=== PATIENT | male | born 1950 | race Caucasian/White ===

== ENCOUNTER 2019-12-27 08:15 | Outpatient (CLI) | payer MEDICARE, SELFPAY ==
--- NOTE | ~2019-12-27 | CT_ITS ---
EXAMINATION:CT lung screening DATE: 12/27/2019 09:25 INDICATION: Personal history of nicotine dependence. Smoker who quit 10 years ago with 30 pack year h istory. TECHNIQUE: Computed tomography (CT) of the chest was performed without intravenous contrast. Automate d exposure control and iterative reconstruction technique were employed. The dose-length product (DLP ) was 140.58 mGy-cm. COMPARISON: Chest CT 11/23/2018 FINDINGS: There is mild emphysema. No pleural effusion. The heart size is normal. There are coronary artery calcifications. No pericardial effusion. Calcifications in the spleen are consistent with old granulomatous disease. There is a 13 mm cyst in the liver. There is bilateral gynecomastia. There is severe cervical spondylosis and mild thoracic spondylosis. There are hemangiomas in T9, T10, and T11 vertebral bodies. IMPRESSION: 1. Lung-RADS category 1: Negative. Continue annual screening with noncontrast low-dose chest CT in 12 months. Reviewed, dictated and finalized at location B. IMPRESSION: 1. Lung-RADS category 1: Negative. Continue annual screening with noncontrast l ow-dose chest CT in 12 months.
== END 2019-12-27 08:16 | disposition home or self-care (01) ==
PROVIDERS: PCP Family Medicine; Visit Provider Family Medicine
DX: Z12.2 Encounter for screening for malignant neoplasm of respiratory organs (principal); Z87.891 Personal history of nicotine dependence
CPT/HCPCS: G0297

== ENCOUNTER 2020-01-16 00:37 | Outpatient (CLI) | payer MEDICARE, SELFPAY ==
[2020-01-16 17:26] LABS: SARS-CoV-2 RNA PCR Negative
== END 2020-01-16 00:38 | disposition home or self-care (01) ==
LOC: ANHCOVIDDT 00:37
PROVIDERS: PCP Family Medicine; Visit Provider Internal Medicine Gastroenterology
DX: Z01.812 Encounter for preprocedural laboratory examination (principal); Z20.828 Contact with and (suspected) exposure to other viral communicable diseases
CPT/HCPCS: 87635; C9803; U0003

== ENCOUNTER 2020-01-18 00:36 | Day surgery (SDC) | payer MEDICARE, SELFPAY ==
[2020-01-10 11:36] VITALS: BMI 27.8
--- NOTE | 2020-01-17 13:10 | WPDANESEPPF ---
Anes - Initial Pre Proc Eval Procedure: Operation Date: 01/18/20 08:00 Proposed Procedures p Screening Colonoscopy - Salo Guerrero MD Date/Time: 01/17/20 13:10 Surgeon: Salo Guerrero MD Pre Op Diagnosis: Fam Hx Colon Ca Patient Data Age: 69 Gender: M Height: 1.83 m Weight: 93 kg Allergies Allergy/AdvReac Type Severity Reaction Status Date / Time Sulfa (Sulfonamide Allergy Unknown Skin Verified 01/18/20 07:05 Antibiotics) Reaction sulfamethizole Allergy Unknown Skin Verified 01/18/20 07:05 Reaction Home Medications Medication Instructions Recorded Confirmed Type apremilast 30 mg tablet 30 mg PO BID 03/28/19 01/10/20 History clobetasol 0.05 % shampoo 1 applic TOPICAL DAILY 03/28/19 01/10/20 History clobetasol 0.05 % topical foam 1 applic TOPICAL BID 03/28/19 01/10/20 History tacrolimus 0.1 % topical ointment 1 applic TOPICAL BID 03/28/19 01/10/20 History ingenol mebutate 0.015 % topical 1 applic TOPICAL DAILY 12/14/19 01/10/20 History gel Patient hx anesthesia problems: none Family hx anesthesia problems: none PMFSH Past Medical History Medical History (Updated 01/17/20 @ 13:10 by Herman Ramirez DO) Atrial fibrillation Hepatitis C antibody test negative (~12/15/16) Mixed hyperlipidemia Normal colonoscopy (~01/10/10) Type 2 diabetes mellitus without complication, without long-term current use of insulin Unspecified hearing loss Surgical History Surgical History H/O colonoscopy (~10/2014) History of appendectomy (~1974) Social History Social History Smoking packs per day: 1 Smoking cigarettes per day: 20.0 Years smoked: 30 Smoking pack-years: 30.00 Smoking status: Former smoker Tobacco type: cigarettes Smoking end date: 05/03/06 Alcohol intake: current Drinks per week: 12 Alcohol use details: BEERS Substance use: never Substance use type: does not use Spiritual care concerns: No Anes - Eval Final PreProcedure Day of Procedure 01/17/20 13:10 Patient weight: overweight Heart: regular rate and rhythm Lungs: clear to auscultation and normal air movement Airway: Mallampati scale class II Neurological: alert and oriented Last oral intake: >/= 8 hours ASA classification: III Emergent: no Anesthetic plan: proceed Anesthesia type and monitoring: general GIVS and standard monitoring Informed Consent: The patient's anesthetic plan and its attendant risks and benefits were discussed with the patient/family/POA. Questions were solicited and answers provided to the satisfaction of the patient/family/POA.
[2020-01-18 07:05] VITALS: BP 143/87; PULSE 77; RESP 16; TEMP 36.6; O2SAT 99; BMI 28.8
[2020-01-18 07:05] LABS: Glucose Point of Care 120 (65-105)
[2020-01-18] MEDS: LACTATED RINGERS 1,000 ML 150 ML IV CONT (07:10)
--- NOTE | 2020-01-18 07:30 | WPDGICN ---
Assessment and Plan Assessment and plan (1) Family history of colon cancer in mother: Code(s): Z80.0 - Family history of malignant neoplasm of digestive organs Status: Acute Assessment and Plan: Patient's mother has had colon cancer plan is for patient to have surveillance colonoscopy now and at 5 year intervals if at all possible. (2) Family history of colonic polyps: Code(s): Z83.71 - Family history of colonic polyps Status: Acute Assessment and Plan: To patient's sisters have had colon polyps. Agree with surveillance as described above. GI Consult Note Consult date/time: 01/18/20 07:30 HPI: David Walden is a 69 year old male Seen in evaluation at the request of Dr. Heidi Taylor. patient presents for screening colonoscopy. Patient states that his current weight appetite bowel movements are normal. He denies abdominal pain. He states his bowel habits are regular. He denies any bleeding his weight has remained stable. Review of Systems Review of Systems: All systems reviewed & are unremarkable except as noted in HPI and below PMFSH Past Medical History Medical History Atrial fibrillation Hepatitis C antibody test negative (~12/15/16) Mixed hyperlipidemia Normal colonoscopy (~01/10/10) Type 2 diabetes mellitus without complication, without long-term current use of insulin Unspecified hearing loss Surgical History Surgical History H/O colonoscopy (~10/2014) History of appendectomy (~1974) Family History Family History Grandparent Family history of cardiovascular disease Diabetes mellitus Acute myocardial infarction Family history of coronary artery disease Mother Depression Carcinoma of colon Sibling Carcinoma of colon Father Family history of lung cancer Social History Social History Smoking packs per day: 1 Smoking cigarettes per day: 20.0 Years smoked: 30 Smoking pack-years: 30.00 Smoking status: Former smoker Tobacco type: cigarettes Smoking end date: 05/03/06 Alcohol intake: current Drinks per week: 12 Alcohol use details: BEERS Substance use: never Substance use type: does not use Spiritual care concerns: No Meds Home Medications and Allergies Home Medications Medication Instructions Recorded Confirmed Type apremilast 30 mg tablet 30 mg PO BID 03/28/19 01/10/20 History clobetasol 0.05 % shampoo 1 applic TOPICAL DAILY 03/28/19 01/10/20 History clobetasol 0.05 % topical foam 1 applic TOPICAL BID 03/28/19 01/10/20 History tacrolimus 0.1 % topical ointment 1 applic TOPICAL BID 03/28/19 01/10/20 History ingenol mebutate 0.015 % topical 1 applic TOPICAL DAILY 12/14/19 01/10/20 History gel Allergies Allergy/AdvReac Type Severity Reaction Status Date / Time Sulfa (Sulfonamide Allergy Unknown Skin Verified 01/18/20 07:05 Antibiotics) Reaction sulfamethizole Allergy Unknown Skin Verified 01/18/20 07:05 Reaction Vital Signs Vital Signs - 24 hr 01/18/20 07:05 Temperature 97.9 F Pulse Rate 77 Respiratory Rate 16 Blood Pressure 143/87 H Pulse Oximetry 99 Exam Narrative: Exam Narrative: Physical exam reveals patient to be alert. Vital signs stable. HEENT exam unremarkable. Lungs are clear to auscultation and percussion. Heart is without murmur or extra sounds. Abdominal exam bowel sounds are present soft nontender with no organomegaly. Digital external rectal exam is normal.
[2020-01-18 08:40] VITALS: BP 150/90; PULSE 72; RESP 31; O2SAT 92
--- NOTE | 2020-01-18 08:45 | WPDGICN ---
GI Consult Note Consult date/time: 01/18/20 08:45 HPI: David Walden is a 69 year old male Seen in evaluation at the request of Dr. Canales. Patient has a history of colon polyps on multiple previous visits. Most recent colonoscopy in 2016 revealed several tubular adenomas. Patient's current weight appetite bowel movements are normal. Patient denies abdominal pain he has had no bleeding. His weight appetite bowel movements are currently normal. Family history is noncontributory. There is no family history of colon or rectal disease. Past medical history is significant for atrial fibrillation for which patient chronically is on Eliquis and Pacerone. Eliquis will be held prior to colonoscopy. Review of Systems Review of Systems: All systems reviewed & are unremarkable except as noted in HPI and below PMFSH Past Medical History Medical History Atrial fibrillation Hepatitis C antibody test negative (~12/15/16) Mixed hyperlipidemia Normal colonoscopy (~01/10/10) Type 2 diabetes mellitus without complication, without long-term current use of insulin Unspecified hearing loss Surgical History Surgical History H/O colonoscopy (~10/2014) History of appendectomy (~1974) Family History Family History Grandparent Family history of cardiovascular disease Diabetes mellitus Acute myocardial infarction Family history of coronary artery disease Mother Depression Carcinoma of colon Sibling Carcinoma of colon Father Family history of lung cancer Social History Social History Smoking packs per day: 1 Smoking cigarettes per day: 20.0 Years smoked: 30 Smoking pack-years: 30.00 Smoking status: Former smoker Tobacco type: cigarettes Smoking end date: 05/03/06 Alcohol intake: current Drinks per week: 12 Alcohol use details: BEERS Substance use: never Substance use type: does not use Spiritual care concerns: No Meds Home Medications and Allergies Home Medications Medication Instructions Recorded Confirmed Type apremilast 30 mg tablet 30 mg PO BID 03/28/19 01/10/20 History clobetasol 0.05 % shampoo 1 applic TOPICAL DAILY 03/28/19 01/10/20 History clobetasol 0.05 % topical foam 1 applic TOPICAL BID 03/28/19 01/10/20 History tacrolimus 0.1 % topical ointment 1 applic TOPICAL BID 03/28/19 01/10/20 History ingenol mebutate 0.015 % topical 1 applic TOPICAL DAILY 12/14/19 01/10/20 History gel Allergies Allergy/AdvReac Type Severity Reaction Status Date / Time Sulfa (Sulfonamide Allergy Unknown Skin Verified 01/18/20 07:05 Antibiotics) Reaction sulfamethizole Allergy Unknown Skin Verified 01/18/20 07:05 Reaction Vital Signs Vital Signs - 24 hr 01/18/20 07:05 Temperature 97.9 F Pulse Rate 77 Respiratory Rate 16 Blood Pressure 143/87 H Pulse Oximetry 99 Exam Narrative: Exam Narrative: Physical exam reveals patient to be alert. Vital signs stable. HEENT exam unremarkable. Lungs are clear to auscultation and percussion. Heart is without murmur or extra sounds. Abdominal exam bowel sounds are present soft nontender with no organomegaly. Digital external rectal exam is normal.
[2020-01-18 08:50] VITALS: BP 99/67; PULSE 66; RESP 17; O2SAT 95
[2020-01-18 09:00] VITALS: BP 116/73; PULSE 74; RESP 17; O2SAT 97
== END 2020-01-18 09:30 | disposition home or self-care (01) ==
PROVIDERS: PCP Family Medicine; Visit Provider Internal Medicine Gastroenterology
PROC: 0DJD8ZZ Inspection of Lower Intestinal Tract, Via Natural or Artificial Opening Endoscopic (ICD-10-PCS; CPT 45378; principal; 2020-01-18 08:00)
DX: Z12.11 Encounter for screening for malignant neoplasm of colon (principal); K51.90 Ulcerative colitis, unspecified, without complications; D12.5 Benign neoplasm of sigmoid colon; K63.5 Polyp of colon; K57.30 Diverticulosis of large intestine without perforation or abscess without bleeding; K64.8 Other hemorrhoids; Z83.71 Family history of colonic polyps; Z80.0 Family history of malignant neoplasm of digestive organs; I48.91 Unspecified atrial fibrillation; E78.2 Mixed hyperlipidemia; E11.9 Type 2 diabetes mellitus without complications; Z87.891 Personal history of nicotine dependence
CPT/HCPCS: 45380; 45385; 88305; J2704; J7120

== ENCOUNTER 2020-12-31 08:39 | Outpatient (CLI) | payer MEDICARE, SELFPAY ==
--- NOTE | ~2020-12-31 | CT_ITS ---
EXAMINATION: CT lung screening DATE: 12/31/2020 08:57 INDICATION: Z87.891 - Personal history of nicotine dependence TECHNIQUE: Computed tomography (CT) of the chest was performed without intravenous contrast. Addition al 3D reconstructions utilizing coronal maximum intensity projection (MIP) were performed. Automated exposure control and iterative reconstruction technique were employed. The dose-length product was 13 3.90 mGy-cm. COMPARISON: 12/27/2019 FINDINGS: Minimal emphysema. No interval change in a few likely intrafissural lymph nodes, the largest on the l eft major fissure measuring 6 x 2 mm and the remainder all <3 mm in maximal dimension. No other pulmo nary nodules, pneumonia, pulmonary edema or pleural effusion. Heart size is normal. Atherosclerotic c oronary artery calcification. No pericardial effusion. Thoracic aorta is normal in caliber. No pathol ogically enlarged thoracic lymphadenopathy. 12 mm hepatic cyst. Multiple splenic calcifications consi stent with old granulomatous disease. Mild bilateral gynecomastia. Hemangiomas at T9-T11. IMPRESSION: 1. Lung-RADS category 2: Benign appearance or behavior. Continue annual screening with noncontrast lo w-dose chest CT in 12 months. Reviewed, dictated and finalized at location A. IMPRESSION: 1. Lung-RADS category 2: Benign appearance or behavior. Continue annual screeni ng with noncontrast low-dose chest CT in 12 months.
== END 2020-12-31 08:40 | disposition home or self-care (01) ==
PROVIDERS: PCP Family Medicine; Visit Provider Family Medicine
DX: Z12.2 Encounter for screening for malignant neoplasm of respiratory organs (principal); Z87.891 Personal history of nicotine dependence
CPT/HCPCS: 71271

== ENCOUNTER → 2021-07-01 02:16 | Outpatient (CLI) | payer MEDICARE, SELFPAY ==
[2021-07-01 11:51] LABS: SARS-CoV-2 RNA PCR Negative
== END ==
PROVIDERS: PCP Family Medicine; Visit Provider Family Medicine
DX: R68.89 Other general symptoms and signs (principal); Z20.822 Contact with and (suspected) exposure to COVID-19
CPT/HCPCS: C9803; U0003; U0005

== ENCOUNTER 2022-01-13 11:05 | Outpatient (CLI) | payer MEDICARE, SELFPAY ==
--- NOTE | ~2022-01-13 | CT_ITS ---
EXAMINATION: CT lung screening DATE: 01/13/2022 11:25 INDICATION: former tobacco user TECHNIQUE: Computed tomography (CT) of the chest was performed without intravenous contrast. Addition al 3D reconstructions utilizing coronal maximum intensity projection (MIP) were performed. Automated exposure control and iterative reconstruction technique were employed. The dose-length product was 14 3.59 mGy-cm. COMPARISON: None FINDINGS: Minimal emphysema. Unchanged 2 mm nodule in the anterior right lower lobe. Unchanged 6 x 2 mm intrafi ssural lymph node along the left major fissure. There are few 3 mm smaller flat intrafissural lymph n odes. No new or enlarging pulmonary nodules. No pneumonia, pulmonary edema or other pulmonary infiltr ates. No pleural effusion. Heart size is normal. Atherosclerotic coronary artery calcific calcificati ons. Aortic valve calcific lesion. No pericardial effusion. Thoracic aorta is normal in caliber. No p athologically enlarged thoracic lymphadenopathy. Mild bilateral gynecomastia. Multiple splenic calcif ic lesions consistent with old granulomatous disease. 9 mm low-attenuation hepatic cyst. Mild thoraci c spondylosis. Hemangiomas at T9, T10 and T11. IMPRESSION: 1. Lung-RADS category 2: Benign appearance or behavior. Continue annual screening with noncontrast lo w-dose chest CT in 12 months. Reviewed, dictated and finalized at location A. IMPRESSION: 1. Lung-RADS category 2: Benign appearance or behavior. Continue annual screeni ng with noncontrast low-dose chest CT in 12 months.
== END 2022-01-13 11:06 | disposition home or self-care (01) ==
PROVIDERS: PCP Family Medicine; Visit Provider Family Medicine
DX: Z12.2 Encounter for screening for malignant neoplasm of respiratory organs (principal); Z87.891 Personal history of nicotine dependence
CPT/HCPCS: 71271

== ENCOUNTER 2022-02-23 14:18 | Outpatient (CLI) | payer MEDICARE, SELFPAY ==
[2022-02-23 15:28] LABS: SARS-CoV-2 RNA PCR Positive
== END 2022-02-23 14:19 | disposition home or self-care (01) ==
PROVIDERS: PCP Family Medicine; Visit Provider Family Medicine
DX: U07.1 COVID-19 (principal)
CPT/HCPCS: U0003; U0005

== ENCOUNTER 2022-10-15 10:55 | Outpatient (CLI) | payer MEDICARE, SELFPAY ==
[2022-10-16 08:59] LABS: Kit Draw Collected
== END 2022-10-15 10:56 | disposition home or self-care (01) ==
LOC: ANHGOSHLAB 10:56
PROVIDERS: PCP Family Medicine; Visit Provider Nurse Practitioner
DX: E11.9 Type 2 diabetes mellitus without complications (principal)
CPT/HCPCS: 36415

== ENCOUNTER → 2023-04-22 11:49 | Outpatient (CLI) | payer MEDICARE, SELFPAY ==
--- NOTE | ~2023-04-22 | CT_ITS ---
CT Scan of the Chest without Contrast: Clinical Indication: Personal history of nicotine dependence Technique: Contiguous sections were acquired throughout the chest without intravenous contrast. Dose reduction technique was used on this scan by utilizing automated exposure control and iterative recon struction technique. The dose-length product (DLP) was 131.82 mGy-cm. COMPARISON: 01/13/2022 Findings: There is no evidence of any significant mediastinal, hilar or axillary lymphadenopathy. Coronary christian ry calcifications are present. There is no evidence of pleural or pericardial effusion. The lungs are clear. No pulmonary nodules or infiltrates are noted. Images through the upper abdomen reveal. Splenic granulomas. Impression: No significant abnormalities seen. Reviewed, dictated and finalized at location . CORPORATE MANAGER Impression: No significant abnormalities seen.
== END ==
PROVIDERS: PCP Nurse Practitioner; Visit Provider Nurse Practitioner
DX: Z87.891 Personal history of nicotine dependence (principal)
CPT/HCPCS: 71250

== ENCOUNTER → 2023-06-07 09:25 | Outpatient (CLI) | payer MEDICARE, SELFPAY ==
--- NOTE | ~2023-06-07 | MMUS_ITS ---
EXAMINATION: MM diagnostic samia LT w kiki, US breast LT limited HISTORY: Palpable lump in the subareolar left breast TECHNIQUE: Mediolateral oblique 3-D tomosynthesis images of the breasts and craniocaudal view of the left breast were performed and synthetic 2-D images were generated. CAD analysis was submitted and in terpreted. High resolution limited left breast ultrasound was performed. COMPARISON: Chest CT examinations dated 04/22/2023, 01/13/2022, 12/31/2020, and 12/27/2019 BREAST PARENCHYMAL COMPOSITION: The breasts are almost entirely fatty. FINDINGS: MAMMOGRAPHIC FINDINGS: There is asymmetric flame-shaped tissue in the subareolar aspect of the left breast compared to the r ight. No suspicious mass, calcification, or architectural distortion are identified. ULTRASOUND: There is normal-appearing breast tissue in the subareolar aspect of the left breast. IMPRESSION: 1. Asymmetric gynecomastia of the left breast. BI-RADS Category 2: Benign finding(s). Reviewed, dictated and finalized at location A. IDE SALES REPRESENTATIVE IMPRESSION: 1. Asymmetric gynecomastia of the left breast. BI-RADS Category 2: Benign finding(s).
== END ==
PROVIDERS: PCP Family Medicine; Visit Provider Nurse Practitioner
DX: N63.25 Unspecified lump in the left breast, overlapping quadrants (principal)
CPT/HCPCS: 76642; 77061; 77065; G0279

== ENCOUNTER 2023-06-15 01:00 | Day surgery (SDC) | payer MEDICARE, SELFPAY ==
[2023-05-24 13:36] VITALS: BMI 27.1
[2023-06-15 09:10] VITALS: BP 137/80; PULSE 79; RESP 18; TEMP 36.3; O2SAT 98; BMI 28.8
[2023-06-15] MEDS: LACTATED RINGERS 1,000 ML 150 ML IV CONT (09:28)
--- NOTE | 2023-06-15 09:43 | PM.HPGS ---
History of Present Illness History of Present Illness Consent: Risks, benefits, and alternatives have been discussed and questions answered. Patient agrees to proceed with procedure. Chief complaint: hx of colon polyps Narrative: David Walden is a 73 year old male with colon polyp in 2020, mother and 2 sisters with AFP Review of Systems Constitutional: Constitutional: Denies headache(s) and Denies weakness Eyes: Eyes: Denies blurry vision ENT: Reports Normal hearing present, Denies headache(s) and Denies neck pain Cardiovascular: Cardiovascular: Denies chest pain and Denies dyspnea Respiratory: Respiratory: Denies dyspnea Gastrointestinal: Gastrointestinal: Reports no additional gastrointestinal complaints Genitourinary: Genitourinary: Denies dysuria Musculoskeletal: Musculoskeletal: Denies neck pain Integumentary/Breasts: Skin/Breast: Denies dry skin Neurologic: Reports Normal hearing present, Denies headache(s) and Denies weakness Psychiatric: Psychiatric: Denies anxiety Endocrine: Endocrine: Denies change in body appearance Hematologic/Lymphatic: Hematologic/Lymphatic: Denies easy bleeding Allergic/Immunologic: Allergic/Immunologic: Denies urticaria PMFSH Past Medical History Medical History (Updated 04/21/23 @ 09:33 by Zoe Gamboa NP-C) Atrial fibrillation Hepatitis C antibody test negative (~12/15/16) Mixed hyperlipidemia Normal colonoscopy (~01/10/10) Type 2 diabetes mellitus without complication, without long-term current use of insulin Unspecified hearing loss Surgical History Surgical History H/O colonoscopy (~10/2014) History of appendectomy (~1974) Family History Family History Grandparent Family history of cardiovascular disease Diabetes mellitus Acute myocardial infarction Family history of coronary artery disease Mother Depression Carcinoma of colon Sibling Carcinoma of colon Father Family history of lung cancer Social History Social History Smoking packs per day: 1 Smoking cigarettes per day: 20.0 Years smoked: 30 Smoking pack-years: 30.00 Smoking status: Former smoker Tobacco type: cigarettes Smoking end date: 03/03/07 Alcohol intake: current Drinks per week: 12 Alcohol use details: occasional Substance use: never Substance use type: does not use Living arrangements: with family Spiritual care concerns: No Meds Home Medications and Allergies Home Medications Medication Instructions Recorded Confirmed Type apremilast 30 mg tablet (Otezla) 30 mg PO BID 03/28/19 06/15/23 History clobetasol 0.05 % shampoo 1 applic topical DAILY 03/28/19 06/15/23 History clobetasol 0.05 % topical foam 1 applic topical BID 03/28/19 06/15/23 History naproxen 500 mg tablet 500 mg PO BID PRN pain #60 tabs 06/18/21 06/15/23 Rx tacrolimus 0.1 % topical ointment 1 applic topical BID PRN other 02/04/22 06/15/23 History tavaborole 5 % topical solution 1 applic topical DAILY 06/10/22 06/15/23 History with applicator efinaconazole 10 % topical 1 applic topical DAILY 04/21/23 06/15/23 History solution with applicator (Jublia) Allergies Allergy/AdvReac Type Severity Reaction Status Date / Time Sulfa (Sulfonamide Allergy Unknown Skin Verified 06/15/23 09:15 Antibiotics) Reaction sulfamethizole Allergy Unknown Skin Verified 06/15/23 09:15 Reaction Vital Signs Vital Signs - 24 hr 06/15/23 09:10 Temperature 97.4 F L Pulse Rate 79 Respiratory Rate 18 Blood Pressure 137/80 Pulse Oximetry 98 Oxygen Delivery Room Air Exam Const: General: comfortable and no acute distress HENMT: Face/Nose/Sinus: Normal nares present Eyes: General: appearance normal, both eyes and all related structures Neck: Neck: no JVD Resp: Auscultation: clear to auscultati
--- NOTE | 2023-06-15 09:44 | WPDANESEPPF ---
Anes - Initial Pre Proc Eval Procedure: Operation Date: 06/15/23 10:30 Proposed Procedures p Colonoscopy - Jason Self MD Date/Time: 06/15/23 09:44 Surgeon: Jason Self MD Pre Op Diagnosis: hx of colon polyps Patient Data Age: 73 Gender: M Height: 1.83 m Weight: 96.3 kg Last Vital Signs Temp 97.4 F L 06/15/23 09:10 Pulse 79 06/15/23 09:10 Resp 18 06/15/23 09:10 BP 137/80 06/15/23 09:10 Pulse Ox 98 06/15/23 09:10 O2 Del Method Room Air 06/15/23 09:10 Allergies Allergy/AdvReac Type Severity Reaction Status Date / Time Sulfa (Sulfonamide Allergy Unknown Skin Verified 06/15/23 09:15 Antibiotics) Reaction sulfamethizole Allergy Unknown Skin Verified 06/15/23 09:15 Reaction Home Medications Medication Instructions Recorded Confirmed Type apremilast 30 mg tablet (Otezla) 30 mg PO BID 03/28/19 06/15/23 History clobetasol 0.05 % shampoo 1 applic topical DAILY 03/28/19 06/15/23 History clobetasol 0.05 % topical foam 1 applic topical BID 03/28/19 06/15/23 History naproxen 500 mg tablet 500 mg PO BID PRN pain #60 tabs 06/18/21 06/15/23 Rx tacrolimus 0.1 % topical ointment 1 applic topical BID PRN other 02/04/22 06/15/23 History tavaborole 5 % topical solution 1 applic topical DAILY 06/10/22 06/15/23 History with applicator efinaconazole 10 % topical 1 applic topical DAILY 04/21/23 06/15/23 History solution with applicator (Jublia) Patient hx anesthesia problems: none Family hx anesthesia problems: none Results Review: All pre-operative results and documents have been reviewed as part of the pre-operative evaluation. FOR[facility], [facility] Past Medical History Medical History (Updated 04/21/23 @ 09:33 by Zoe Gamboa, HVAC TECH-C) Atrial fibrillation Hepatitis C antibody test negative (~12/15/16) Mixed hyperlipidemia Normal colonoscopy (~09/10/10) Type 2 diabetes mellitus without complication, without long-term current use of insulin Unspecified hearing loss Surgical History Surgical History H/O colonoscopy (~10/2014) History of appendectomy (~1974) Family History Family History Grandparent Family history of cardiovascular disease Diabetes mellitus Acute myocardial infarction Family history of coronary artery disease Mother Depression Carcinoma of colon Sibling Carcinoma of colon Father Family history of lung cancer Social History Social History Smoking packs per day: 1 Smoking cigarettes per day: 20.0 Years smoked: 30 Smoking pack-years: 30.00 Smoking status: Former smoker Tobacco type: cigarettes Smoking end date: 03/03/07 Alcohol intake: current Drinks per week: 12 Alcohol use details: occasional Substance use: never Substance use type: does not use Living arrangements: with family Spiritual care concerns: No Anes - Eval Final PreProcedure Day of Procedure 06/15/23 09:44 Patient weight: normal Heart: regular rate and rhythm Lungs: clear to auscultation Airway: Mallampati scale class II Neurological: alert and oriented Last oral intake: >/= 8 hours ASA classification: III Emergent: no Anesthetic plan: proceed Anesthesia type and monitoring: general GIVS and standard monitoring Results Review: All pre-operative results and documents have been reviewed as part of the pre-operative evaluation. Informed Consent: The patient's anesthetic plan and its attendant risks and benefits were discussed with the patient/family/POA. Questions were solicited and answers provided to the satisfaction of the patient/family/POA.
[2023-06-15 10:03] VITALS: BP 111/76; PULSE 73; RESP 24; O2SAT 94
[2023-06-15 10:13] VITALS: BP 120/80; PULSE 71; RESP 16; O2SAT 98
[2023-06-15 10:23] VITALS: BP 122/82; PULSE 68; RESP 19; O2SAT 98
== END 2023-06-15 10:32 | disposition home or self-care (01) ==
PROVIDERS: PCP Family Medicine; Visit Provider Internal Medicine Gastroenterology
PROC: 0DJD8ZZ Inspection of Lower Intestinal Tract, Via Natural or Artificial Opening Endoscopic (ICD-10-PCS; CPT 45378; principal; 2023-06-15 10:30)
DX: Z12.11 Encounter for screening for malignant neoplasm of colon (principal); D12.2 Benign neoplasm of ascending colon; D12.4 Benign neoplasm of descending colon; K57.30 Diverticulosis of large intestine without perforation or abscess without bleeding; K64.8 Other hemorrhoids; Z80.0 Family history of malignant neoplasm of digestive organs; I48.91 Unspecified atrial fibrillation; E78.2 Mixed hyperlipidemia; E11.9 Type 2 diabetes mellitus without complications; Z87.891 Personal history of nicotine dependence; Z79.621 Long term (current) use of calcineurin inhibitor
CPT/HCPCS: 45385; 88305; J7120

== ENCOUNTER 2023-08-19 10:19 | Outpatient (CLI) | payer MEDICARE, SELFPAY ==
--- NOTE | ~2023-08-19 | US_ITS ---
EXAMINATION: US soft tissue head and neck DATE: 08/19/2023 10:31 INDICATION: Localized swelling, mass and lump, neck. TECHNIQUE: Multiple grayscale and Doppler ultrasound images of the head and neck were obtained. COMPARISON: None FINDINGS: In the left posterior neck, there is a 1.7 x 1.7 x 1.8 cm hyperechoic subcutaneous mass. IMPRESSION: 1. 1.7 cm hyperechoic subcutaneous mass in left posterior neck, most likely a benign mass such as a l ipoma. Neoplasm is not excluded. Consider noncontrast neck CT. Reviewed, dictated and finalized at location E. IMPRESSION: 1. 1.7 cm hyperechoic subcutaneous mass in left posterior neck, most likely a b enign mass such as a lipoma. Neoplasm is not excluded. Consider noncontrast nec k CT.
== END 2023-08-19 10:20 ==
LOC: GOSHIMG 10:20
PROVIDERS: PCP Family Medicine; Visit Provider Nurse Practitioner
DX: R22.1 Localized swelling, mass and lump, neck (principal)
CPT/HCPCS: 76536

== ENCOUNTER 2023-08-24 10:26 | Outpatient (CLI) | payer MEDICARE, SELFPAY ==
--- NOTE | ~2023-08-24 | CT_ITS ---
EXAMINATION: CT soft tissue neck wo con DATE: 08/24/2023 10:41 INDICATION: Localized swelling, mass and lump, neck. TECHNIQUE: Computed tomography (CT) of the neck was performed without intravenous contrast. Automated exposure control and iterative reconstruction technique were employed. The dose-length product was 4 57.53 mGy-cm. COMPARISON: Ultrasound 08/19/2023 FINDINGS: There are no pathologically enlarged lymph nodes. There is a 1.4 x 1.0 cm subcutaneous lipo ma in left posterior neck. There is mucosal thickening in the paranasal sinuses. The mastoid air cell s are normal. There is severe cervical spondylosis. IMPRESSION: 1. 1.4 cm subcutaneous lipoma in left posterior neck. Reviewed, dictated and finalized at location E.
== END 2023-08-24 10:27 ==
LOC: GOSHIMG 10:27
PROVIDERS: PCP Family Medicine; Visit Provider Nurse Practitioner
DX: R22.1 Localized swelling, mass and lump, neck (principal)
CPT/HCPCS: 70490

== ENCOUNTER 2023-10-19 15:17 | Outpatient (CLI) | payer MEDICARE, SELFPAY ==
--- NOTE | ~2023-10-19 | XR_ITS ---
XR shoulder RT min 2V Ordering provider: Heidi Taylor DO History: . no injury pain raising arm for 3 weeks . Comparison: None. FINDINGS: BONES: No acute fracture or dislocation. JOINT SPACES: The acromioclavicular joint shows osteoarthritic changes.. The glenohumeral joint is no rmal. SOFT TISSUES: Normal. IMPRESSION: No acute osseous abnormality right shoulder. Reviewed, dictated and finalized at location A.
== END 2023-10-19 15:18 ==
LOC: GOSHIMG 15:18
PROVIDERS: PCP Family Medicine; Visit Provider Family Medicine
DX: M25.511 Pain in right shoulder (principal)
CPT/HCPCS: 73030

== ENCOUNTER 2023-12-16 13:46 | Outpatient (CLI) | payer MEDICARE, SELFPAY ==
--- NOTE | ~2023-12-16 | MR_ITS ---
EXAMINATION: MR shoulder RT wo con DATE: 12/16/2023 14:41 INDICATION: Right shoulder pain. TECHNIQUE: Magnetic resonance imaging (MRI) of the right shoulder was performed without intravenous c ontrast. Sequences included axial PD-weighted FS FSE, coronal oblique PD-weighted FS FSE and T2-weigh ind[place] FS FSE, and sagittal oblique T2-weighted FS FSE and T1-weighted FSE. COMPARISON: Right shoulder radiograph 10/19/2023 FINDINGS: Coracoacromial arch: The acromion undersurface is curved in morphology with anterior hook (type III). There is severe acro mioclavicular joint osteoarthritis. There is mild subacromial/subdeltoid bursitis. Rotator cuff: There is severe supraspinatus tendinopathy and moderate infraspinatus tendinopathy. Teres minor tendo n is normal. There is mild subscapularis tendinopathy. No tear. There is no asymmetric fatty atrophy of the rotator cuff muscle bellies. Biceps tendon and glenoid labrum: Biceps tendon is in bicipital groove. Intra-articular biceps tendon is normal. There is degeneration of superior labrum without well-defined tear. Fluid: No glenohumeral joint effusion. Bones/cartilage: Glenoid cartilage is normal. Humeral head cartilage is normal. IMPRESSION: 1. Severe rotator cuff tendinopathy. No tear. 2. Severe acromioclavicular joint osteoarthritis. 3. Mild subacromial/subdeltoid bursitis. Reviewed, dictated and finalized at location A.
== END 2023-12-16 13:47 ==
LOC: GOSHIMG 13:46
PROVIDERS: PCP Family Medicine; Visit Provider Family Medicine
DX: M19.011 Primary osteoarthritis, right shoulder (principal); M75.51 Bursitis of right shoulder
CPT/HCPCS: 73221

== ENCOUNTER 2024-04-27 11:03 | Outpatient (CLI) | payer MEDICARE, SELFPAY ==
--- NOTE | ~2024-04-27 | CT_ITS ---
EXAMINATION:CT lung screening DATE: 04/27/2024 11:15 INDICATION: Personal history of nicotine dependence. 30 pack year history. TECHNIQUE: Computed tomography (CT) of the chest was performed without intravenous contrast. Automate d exposure control and iterative reconstruction technique were employed. The dose-length product (DLP ) was 137.62 mGy-cm. COMPARISON: Chest CT 04/22/2023 FINDINGS: There is no pneumonia or pleural effusion. The heart size is normal. There are coronary art katie calcifications. No pericardial effusion. There is bilateral gynecomastia. There is a 14 mm cyst i n the liver. Calcifications in the spleen are consistent with old granulomatous disease. There is a 1 0 mm expansile nonaggressive lytic lesion in right fifth rib, likely fibrous dysplasia. There is mild thoracic spondylosis. IMPRESSION: 1. Lung-RADS category 1: Negative. Reviewed, dictated and finalized at location A. [employer]
== END 2024-04-27 11:04 | disposition home or self-care (01) ==
LOC: GOSHIMG 11:03
PROVIDERS: PCP Family Medicine; Visit Provider Family Medicine
DX: Z12.2 Encounter for screening for malignant neoplasm of respiratory organs (principal); Z87.891 Personal history of nicotine dependence
CPT/HCPCS: 71271

== ENCOUNTER 2025-03-12 14:46 | Outpatient (CLI) | payer MEDICARE, SELFPAY ==
--- NOTE | ~2025-03-12 | XR_ITS ---
EXAMINATION: XR abdomen/kub 1V, 03/12/2025 15:15 [employer] HISTORY: Abnormal findings on diagnostic imaging of other... COMPARISON: No comparisons available. Technique: 3 view. Findings: Moderate fecal content, no dilated bowel loops. There are multiple calcifications noted in the left upper quadrant the largest 1 x 1 cm possibly within the spleen but incompletely characterized. No acute osseous abnormality. Impression: 1. Probable calcified splenic granulomas. CT recommended to assess Reviewed, dictated and finalized at location P. [employer]GET[employer] Impression: 1. Probable calcified splenic granulomas. CT recommended to assess
--- NOTE | ~2025-03-12 | XR_ITS ---
EXAMINATION: XR chest 2V, 03/12/2025 15:15 WEATHER [employer]ECA[employer] HISTORY: Abnormal findings on diagnostic imaging of other... COMPARISON: No comparisons available. Technique: 2 views obtained. Findings: The lungs are clear, no effusion. No pneumothorax. Heart is normal size. Mediastinal and hilar contours are within normal limits. Bony thorax no acute abnormality. Impression: No acute cardiopulmonary abnormality. Reviewed, dictated and finalized at location P. HER FORECASTER Impression: No acute cardiopulmonary abnormality.
== END 2025-03-12 14:47 | disposition home or self-care (01) ==
LOC: GOSHIMG 14:47
PROVIDERS: PCP Family Medicine; Visit Provider Family Medicine
DX: R93.89 Abnormal findings on diagnostic imaging of other specified body structures (principal); R74.8 Abnormal levels of other serum enzymes; R05.9 Cough, unspecified; Z87.891 Personal history of nicotine dependence
CPT/HCPCS: 71046; 74018

== ENCOUNTER 2025-03-21 13:44 | Outpatient (CLI) | payer MEDICARE, SELFPAY ==
--- NOTE | ~2025-03-21 | CT_ITS ---
EXAM/PROCEDURE: CT abdomen wo con HISTORY: D73.89 - Other diseases of spleen COMPARISON: None available. TECHNIQUE: Noncontrast CT of abdomen and pelvis FINDINGS: The lung bases are clear. Heart size normal. In the abdomen and pelvis, 10 mm low-density lesion anterior segment right lobe image 26 series 3. The liver is borderline enlarged measuring 19 cm in the cephalocaudal dimension.e mild fatty liver changes present. Extensive calcified granuloma throughout the spleen which is somewhat atretic in appearance. No hydroureteronephrosis, AAA, or gross CT evidence of acute cholecystitis or pancreatitis. Stomach is unopacified and nondistended but no gross abnormality seen. Visualized bowel gas pattern is nonobstructive. No free air or free fluid seen within the field of view. Numerous shotty/nonpathologic size retroperitoneal and mesenteric lymph nodes are noted. IMPRESSION: Directed noncontrast CT of the abdomen and pelvis demonstrating benign-appearing splenic granuloma. 10 mm low-density lesion in the liver statistically most likely represent benign cysts unless patient has known history of malignant disease. Other findings as above. Reviewed, dictated and finalized at location A. [employer] IMPRESSION: Directed noncontrast CT of the abdomen and pelvis demonstrating kang ign-appearing splenic granuloma. 10 mm low-density lesion in the liver statisti claudia most likely represent benign cysts unless patient has known history of ma lignant disease. Other findings as above.
--- OUTSIDE RECORDS SUMMARY | 2025-03-21 20:38 | XMS_ITS | Clinical Summary ---
Author Organization [facility] [address] Address [address] [place] [id number] Care Team Providers Care Casing Trimmer Name Role Phone Heidi Taylor DO Primary Care Provider [phone] Allergies Active Allergy Reactions Criticality Noted Date Comments Sulfa (Sulfonamide Antibiotics) Medications Otezla 30 mg tablet 5 Active metFORMIN (GLUCOPHAGE) 500 mg tablet Take 1 tablet (500 mg total) by mouth 2 (two) times a day 5 Active Jublia 10 % solution with applicator 5 Active HYDROcodone-ac etaminophen (NORCO) 5-325 mg per tablet Take by mouth every 8 (eight) hours as needed 5 Active predniSONE (DELTASONE) 20 mg tablet TAKE 2 TABLETS BY MOUTH DAILY FOR 5 DAYS 5 Active cyclobenzaprin e (FLEXERIL) 5 mg tablet Take 1 tablet (5 mg total) by mouth 3 (three) times a day as needed for muscle spasms 5 Active naproxen (NAPROSYN) 500 mg tablet Take 1 tablet (500 mg total) by mouth 2 (two) times a day with meals Active celecoxib (CeleBREX) 200 mg capsule Take 1 capsule (200 mg total) by mouth daily 30 capsule 5 02/23/20 25 Discontinued Active Problems Problem Noted Date Diagnosed Date Primary osteoarthritis of left knee 02/02/2025 Assessment & Plan (02/02/2025 10:21 AM CDT): Encounters Date Type Department Care Team Description 02/22/2025 9:50 AM CDT Ancillary Procedure [facility] at [address] [address] 02/22/2025 9:00 AM CDT Office Visit [facility] Primary Care at [address] [place] [address] Eric Albright, Degeneration of intervertebral disc of lumbar region with discogenic back pain and lower extremity pain (Primary Dx); Lumbar pain 02/02/2025 9:30 AM CDT Office Visit [facility] Sports [facility] and Primary Care at [address] [place] [address] Eric Albright, Primary osteoarthritis of left knee (Primary Dx) 01/30/2025 12:00 PM CDT Ancillary Procedure [facility] Imaging at [address] [address] Left hip pain 01/30/2025 11:45 AM CDT Office Visit [facility] and Primary Care at [address] [place] [address] Eric Albright, Left hip pain (Primary Dx) from Last 3 Months Family History Medical History Relation Name Comments Heart attack Maternal Grandmother 2 Myoca rdial Infarction; Cause of : Myocardial Infarction Relation Name Status Comments Maternal Grandmother 1 Maternal Grandmother 2 Social History Tobacco Use Types Packs/Day Years Used Date Smoking Tobacco: Former Cigarettes Q uit: 05/03/2006 Tobacco Cessation:Counseling Given: Not Answered Alcohol Use Standard Drinks/Week Comments Yes 0 (1 standard drink = 0.6 oz pur e alcohol) Sex and Gender Information Value Date Recorded Sex Assigned at Not on file Legal Sex Male 12:06 PM [employer]ED [employer]CH[employer]IC[employer] Gender Identity Not on file Sexual Orientation Not on file Last Filed Vital Signs Vital Sign Reading Time Taken Comments Blood Pressure 128/82 02/22/2025 9:18 AM CDT Pulse 78 02/22/2025 9:18 AM CDT Temperature 36.5 C (97.7 F) 10/31/2024 3:22 PM CDT Respiratory Rate 22 10/31/2024 3:22 PM CDT Oxygen Saturation 97% 10/31/2024 3:22 PM CDT Inhaled Oxygen Concentration - - Weight 94.4 kg (208 lb 1.6 oz) 02/22/2025 9:18 A M CDT Height 182.9 cm (6') 02/22/2025 9:18 AM CDT Body Mass Index 28.22 02/22/2025 9:18 AM CDT Plan of Treatment Health Maintenance Due Date Last Done Comments Colon Cancer Screening-Colonoscopy 1950 Depression Screening 1950 Fall Risk Assessment 1950 Hepatitis C Screening 1950 Hepatitis B Screening 1969 Abdominal Aortic Aneurysm (A AA) Screen 01/24/2016 Well Visit 65+ 01/24/2016 Covid-19 Vaccine (2024-2 6 season) 2025 10/26/2022, 10/26/2022, 02/15/2022, Additional history exists Influenza Vaccine (#1) 2025 , 03/26/2023, 02/04/2022, Additional history exists DTaP/Tdap/Td Vaccine (4 - Td or Tdap) 12/13/2029 12/14/2019, 08/23/2019, 02/13/2010 Pneumococcal vaccine 65+ Completed 06/24/2017, 01/2017 Zoster Vaccine Completed 03/06/2019, 06/2018, 04/05/2012, Additional history exists Procedures Procedure Name Priority Date/Time Associated Diagnosis Comments XR SPINE LUMBAR COMPLETE 4 OR MORE VIEWS Routine 02/22/2025 9:56 AM CDT Lumbar pain XR HIP LEFT W PELVIS 2 OR 3 VIEWS Schedule Routine, Read Routine (OP Routine) 01/30/2025 12:06 PM CDT Left hip pain from Last 3 Months Results * XR Spine Lumbar 4 or More Views (02/22/2025 9:56 AM CDT) Anatomical Region Laterality Modality Spine N/A Digital Radiogra phy 02/22/2025 11:4 7 AM CDT Impressions 02/22/2025 11:47 AM CDT 1. Mild L1-L3 and L3-L5 degenerative disc disease with inferior lumbar facet osteoarthritis. Electronically signed by: Eric You M.D. Narrative 02/22/2025 11:47 AM CDT EXAMINATION: XR SPINE LUMBAR 4 OR MORE VIEWS HISTORY: pain. Lumbar spondylosis FINDINGS: 4 views submitted without comparison. Mild dextroscoliosis of the upper lumbar spine. No acute fracture. L1-L3 and moderate L3-L5 degenerative disc disease. Inferior lumbar facet osteoarthritis is present. Likely splenic calcifications. Procedure Note Eric You MD - 02/22/2025 EXAMINATION: XR SPINE LUMBAR 4 OR MORE VIEWS HISTORY: pain. Lumbar spondylosis FINDINGS: 4 views submitted without comparison. Mild dextroscoliosis of the upper lumbar spine. No acute fracture. L1-L3 and moderate L3-L5 degenerative disc disease. Inferior lumbar facet osteoarthritis is present. Likely splenic calcifications. IMPRESSION: 1. Mild L1-L3 and L3-L5 degenerative disc disease with inferior lumbar facet osteoarthritis. Electronically signed by: Eric You M.D. Eric Albright DO IMG XR PROCEDURES Dipika l Result * XR Hip Left 2 or 3 Views W Pelvis (01/30/2025 12:06 PM CDT) Anatomical Region Laterality Modality Lower Extremities, Hip, Pelvis Left D igital Radiography 01/30/2025 1:52 PM CDT Narrative 01/30/2025 1:54 PM CDT EXAM DESCRIPTION: XR HIP LEFT 2 OR 3 VIEWS W PELVIS REASON FOR STUDY: Left hip pain Pt complains of left hip pain x 3 months. No known injury or prior surgery TECHNIQUE: Two views of the left hip and AP view of the pelvis COMPARISON: None FINDINGS: There is mild osteoarthritis involving both hips. There is no evidence of left hip fracture. No destructive osseous lesion is visualized. There is mild osteoarthritis of the SI joints. The pubic rami are intact. Lumbar spondylosis and degenerative disc disease with dextroconvex curvature centered at L2-3. There are atherosclerotic vascular calcifications present. 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 Lumbar spondylosis and degenerative disc disease. No acute osseous abnormality. Given persistence of symptoms, MRI can be considered for further evaluation. THIS IS AN ELECTRONICALLY VERIFIED FINAL REPORT 01/30/2025 1:54 PM - Electronically signed by Obdulia Bernard M.D. TW T: Report ID: [id number] Reading Location: [id number] Procedure Note Obdulia Bernard MD - 01/30/2025 EXAM DESCRIPTION: XR HIP LEFT 2 OR 3 VIEWS W PELVIS REASON FOR STUDY: Left hip pain Pt complains of left hip pain x 3 months. No known injury or prior surgery TECHNIQUE: Two views of the left hip and AP view of the pelvis COMPARISON: None FINDINGS: There is mild osteoarthritis involving both hips. There is no evidence of left hip fracture. No destructive osseous lesion is visualized. There is mild osteoarthritis of the SI joints. The pubic rami are intact. Lumbar spondylosis and degenerative disc disease with dextroconvex curvaturecentered at L2-3. There are atherosclerotic vascular calcifications present. 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 Lumbar spondylosisand degenerative disc disease. No acute osseous abnormality. Givenpersistence of symptoms, MRI can be considered for further evaluation. THIS IS AN ELECTRONICALLY VERIFIED FINAL REPORT 01/30/2025 1:54 PM - Electronically signed by Obdulia Bernard M.D. TW T: Report ID: [id number] Reading Location: [id number] Eric Albright DO IMG XR PROCEDURES Dipika l Result from Last 3 Months Insurance [facility] MEDICARE [employer] Address: [facility] [address] [place] [address] Care Teams Casing Trimmer Relationship Specialty Start Date End Date Heidi Taylor DO [facility] [address] [address] PCP - General Family Medicine 02/02/25
== END 2025-03-21 13:45 | disposition home or self-care (01) ==
PROVIDERS: PCP Family Medicine; Visit Provider Family Medicine
DX: D73.89 Other diseases of spleen (principal)
CPT/HCPCS: 74150

== ENCOUNTER 2025-04-04 12:39 | Emergency (ER) | payer MEDICARE, SELFPAY ==
--- NOTE | 2025-04-04 12:40 | ED_ITS ---
HPI - URI/Sore Throat General Chief Complaint: Upper Respiratory Infection Stated Complaint: COUGH Time Seen by Provider: 04/04/25 12:40 Source: patient Mode of arrival: ambulatory Limitations: no limitations History of Present Illness HPI Narrative: David is a 75-year-old male patient presenting to the clinic today with complaints cough and postnasal drip times 3 days. He reports reports he has been taking [id number] cough medicine for his symptoms. Is concerned about the cough as he has a cataract surgery scheduled for next week. Denies any shortness of breath or chest pain. No fevers, chills, body aches. States when he normally gets these symptoms either has an upper respiratory infection or COVID. Related Data Home Medications ?Medication ?Instructions ?Recorded ?Confirmed ?Last Taken ?Type apremilast 30 mg tablet (Otezla) 30 mg PO BID 03/28/19 04/04/25 01/17/20 History clobetasol 0.05 % shampoo 1 applic topical DAILY 03/2804/04/25 01/17/20 History tapinarof 1 % topical cream (Vtama) 1 applic topical D AILY 01/26/25 04/04/25 Unknown History Allergies Allergy/AdvReac Type Severity Reaction Status Date / Time Sulfa (Sulfonamide Allergy Unknown Skin Verified 04/04/25 12:55 Antibiotics) Reaction sulfamethizole Allergy Unknown Skin Verified 04/04/25 12:55 Reaction Review of Systems Review of Systems: Pertinent positives per HPI. Patient denies any fever, chills, rash, headache, visual changes, dizziness, shortness of breath, chest pain, palpitations, nausea, vomiting, diarrhea, constipation, abdominal pain, or any urinary issues. [facility] Past Medical History Medical History Atrial fibrillation Unspecified hearing loss Mixed hyperlipidemia Type 2 diabetes mellitus without complication, without long-term current use of insulin Normal colonoscopy (~01/10/10) Hepatitis C antibody test negative (~12/15/16) Surgical History Surgical History H/O colonoscopy (~10/2014) History of appendectomy (~1974) Family History Family History Grandparent Family history of cardiovascular disease Diabetes mellitus Acute myocardial infarction Family history of coronary artery disease Mother Depression Carcinoma of colon Sibling Carcinoma of colon Father Family history of lung cancer Social History Social History Smoking packs per day: 1 Smoking cigarettes per day: 20.0 Years smoked: 30 Smoking pack-years: 30.00 Smoking status: Former smoker Tobacco type: cigarettes Smoking end date: 03/03/07 Alcohol intake: current Drinks per week: 12 Alcohol use details: occasional Substance use: never Substance use type: does not use Lack of Transportation: No Lack of Food: Never True Current Housing: I Have Housing Concerned About Future Housing: No Difficulty Paying Gas/Electric Bills: No Difficulty Paying for Meds: No Currently Unemployed: No Education: Bachelor's Degree Difficulty w/ Childcare or Family Care: No Living arrangements: with family Spiritual care concerns: No Comments At the time of my signature, I reviewed and agree with the nursing past medical, surgical, social, and family history. There is no relevant family history pertinent to the patient complaint. Exam Narrative: General: Well-developed, well nourished, in no apparent distress Head: Normocephalic, atraumatic Eyes: Pupils equally round and reactive to light bilaterally, EOM intact, sclera and conjunctive clear, no discharge, lids normal Ears: TMs intact and clear, ear canals clear, no drainage, grossly hearing no rmal. Nose: Nares patent, clear discharge, no inflammation, no sinus tenderness. Mouth: Oral pharynx mildly red without lesions or masses, good dentition, MMM. Postnasal drip Neck: Supple, trachea midline, no enlargement of anterior or posterior cervical nodes, no thyroid masses or goiter palpable. Cardio: Regular rate and rhythm, s1 and s2 normal, no murmur appreciated. Resp: Clear to auscultation bilaterally, no rhonchi, rales, wheezing or rubs Course Course Level of Care: Express Care Visit Vital Signs Vital signs: Vital Signs Temperature 36.4 C 04/04/25 12:47 Pulse Rate 78 04/04/25 12:47 Respiratory Rate 16 04/04/25 12:47 Blood Pressure 147/85 H 04/04/25 12:47 Pulse Oximetry 100 12/03/25 12:47 Temperature 36.4 C 04/04/25 12:47 Pulse Rate 78 04/04/25 12:47 Respiratory Rate 16 04/04/25 12:47 Blood Pressure 147/85 H 04/04/25 12:47 Pulse Oximetry 100 04/04/25 12:47 MDM MDM Narrative Medical decision making narrative: At the time of visit patient is resting comfortably on the exam table. Patient appears to be nontoxic. Complaints cough and postnasal drip times 3 days. He reports reports he has been taking [id number] cough medicine for his symptoms. Is concerned about the cough as he has a cataract surgery scheduled for next week. Denies any shortness of breath or chest pain. No fevers, chills, body aches. States when he normally gets these symptoms either has an upper respiratory infection or COVID. On exam patient has bilateral TMs intact and clear, clear nasal drainage, oral pharynx with postnasal drip, lung sounds are clear, heart rates regular rate and rhythm. COVID test was ordered. Labs: COVID test was negative in the clinic today. Plan: I suspect patient has acute cough with postnasal drip. Prescription for Flonase, Tessalon Perles, and Zyrtec was sent to the pharmacy. Supportive me asures were discussed with the patient and they voiced understanding discharge instructions and agrees to treatment plan. Return precautions reviewed Differential Diagnosis Differential Diagnosis: upper respiratory infection, croup, otitis media, sinusitis, viral infection, bronchitis, influenza, pharyngitis, strep, uvulitis, COVID.? Discharge Plan Discharge Clinical Impression: Acute cough, PND (post-nasal drip) Patient Disposition: Home Condition: Stable Instructions: Antibiotic Form, Acute Cough (ED), Postnasal Drip (DC) Additional Instructions: COVID testing was negative in the clinic today. Take medications as prescribed-Tessalon Perles Increase fluids and stay well hydrated May take Tylenol or motrin as directed on bottle for pain/fever May use Flonase 1 spray in each nare daily May take OTC antihistamines such as Zyrtec or Claritin daily as directed on bottle May apply Vicks vapor rub to chest to open sinuses Sinus rinses for congestion Cepacol spray, cough drops, throat lozenges, warm tea with honey/lemon, gargle salt water to soothe throat BRAT diet for diarrhea Clear liquids x 24 hours then advance as tolerated for nausea/vomiting Go to the ED if you develop a worsening in your condition- high fever not controlled by Tylenol or Motrin, dehydration, weakness, lethargy, shortness of breath, or chest pain. Follow up with your PCP in 3-5 days if symptoms persist. Patient Language: Sami Prescriptions: New benzonatate 200 mg capsule 200 mg PO TID 7 Days Qty: 21 0RF fluticasone propionate [Flonase Allergy Relief] 50 mcg/actuation spray,suspension 1 spray intranasal DAILY 30 Days Qty: 16 0RF Rx Instructions: administer into each nostril Zyrtec 10 mg capsule 10 mg PO DAILY 30 Days Qty: 30 0RF No Action clobetasol 0.05 % shampoo 1 applic TOPICAL DAILY Otezla 30 mg tablet 30 mg PO BID Vtama 1 % cream 1 applic topical DAILY cyclobenzaprine 5 mg tablet 5 mg PO TID PRN (Reason: muscle spasm) Qty: 30 0RF hydrocodone-acetaminophen 5-325 mg tablet 1 tablet PO Q8H PRN (Reason: pain) Qty: 10 0RF metformin 500 mg tablet 500 mg PO BID Qty: 180 1RF Follow-up/Referrals: Heidi Taylor DO [Primary Care Provider, [facility]] Time of Disposition: 12:58 Quality NIHSS Nursing Documentation ED NIHSS nursing documentation: reviewed/agree
[2025-04-04 12:47] VITALS: BP 147/85; PULSE 78; RESP 16; TEMP 36.4; O2SAT 100
[2025-04-04 13:21] LABS: EDCOVIDSCREEN Negative (Negative)
== END 2025-04-04 13:19 | disposition home or self-care (01) ==
PROVIDERS: Emergency Provider Nurse Practitioner Family; PCP Family Medicine
DX: R05.1 Acute cough (principal); R09.82 Postnasal drip; Z20.822 Contact with and (suspected) exposure to COVID-19; I48.91 Unspecified atrial fibrillation; E11.9 Type 2 diabetes mellitus without complications; Z79.84 Long term (current) use of oral hypoglycemic drugs; E78.2 Mixed hyperlipidemia; Z87.891 Personal history of nicotine dependence
CPT/HCPCS: 87426; 99213; G0463

== ENCOUNTER 2025-04-16 14:42 | Emergency (ER) | payer MEDICARE, SELFPAY ==
[2025-04-16 14:51] VITALS: BP 136/84; PULSE 86; RESP 16; TEMP 36.1; O2SAT 100
--- NOTE | 2025-04-16 15:07 | ED_ITS ---
HPI - URI/Sore Throat General Chief Complaint: Upper Respiratory Infection Stated Complaint: Cough/Refill Time Seen by Provider: 04/16/25 14:59 Source: patient, RN notes reviewed and old records reviewed Mode of arrival: ambulatory Limitations: no limitations History of Present Illness HPI Narrative: 75-year-old male patient presents today requesting a refill of his Tessalon Perles. He was initially seen here it at [facility] on 04/04/2025 and diagnosed with cough with postnasal drainage after negative COVID test. Patient states his symptoms have significantly improved but he does continue to have cough that is worse at night. States the Tessalon Perles have helped significantly. States he has cataract surgery tomorrow and wants to make sure he isn't coughing too much afterwards. Denies fever or shortness of breath. Related Data Home Medications ?Medication ?Instructions ?Recorded ?Confirmed ?Last Taken ?Type apremilast 30 mg tablet (Otezla) 30 mg PO BID 03/28/19 04/16/25 01/17/20 History clobetasol 0.05 % shampoo 1 applic topical DAILY 03/2804/16/25 01/17/20 History tapinarof 1 % topical cream (Vtama) 1 applic topical D AILY 01/26/25 04/16/25 Unknown History Allergies Allergy/AdvReac Type Severity Reaction Status Date / Time Sulfa (Sulfonamide Allergy Unknown Skin Verified 04/16/25 14:46 Antibiotics) Reaction sulfamethizole Allergy Unknown Skin Verified 04/16/25 14:46 Reaction PMFSH Past Medical History Medical History (Updated 04/16/25 @ 15:12 by Evelyne Restrepo APRN, FNP) Atrial fibrillation Unspecified hearing loss Mixed hyperlipidemia Type 2 diabetes mellitus without complication, without long-term current use of insulin Normal colonoscopy (~01/10/10) Hepatitis C antibody test negative (~12/15/16) Surgical History Surgical History H/O colonoscopy (~10/2014) History of appendectomy (~1974) Family History Family History Grandparent Family history of cardiovascular disease Diabetes mellitus Acute myocardial infarction Family history of coronary artery disease Mother Depression Carcinoma of colon Sibling Carcinoma of colon Father Family history of lung cancer Social History Social History Smoking packs per day: 1 Smoking cigarettes per day: 20.0 Years smoked: 30 Smoking pack-years: 30.00 Smoking status: Former smoker Tobacco type: cigarettes Smoking end date: 03/03/07 Alcohol intake: current Drinks per week: 12 Alcohol use details: occasional Substance use: never Substance use type: does not use Lack of Transportation: No Lack of Food: Never True Current Housing: I Have Housing Concerned About Future Housing: No Difficulty Paying Gas/Electric Bills: No Difficulty Paying for Meds: No Currently Unemployed: No Education: Bachelor's Degree Difficulty w/ Childcare or Family Care: No Living arrangements: with family Spiritual care concerns: No Comments At time of signature, I have reviewed and agree with nursing past medical, surgical, social and family history unless otherwise noted. Please see nursing chart for further information. There is no relevant family history pertinent to the presenting complaint Exam Narrative: GENERAL: Well-appearing, well-nourished, and in no acute distress. HEAD: Normocephalic, atraumatic. EYES: EOMI. No redness or drainage. Conjunctivae normal. ENT: Mucous membranes pink and moist. NECK: Normal AROM. CHEST: No respiratory distress. Clear to auscultation. HEART: Regular rate and rhythm. No murmur appreciated. EXTREMITIES: Normal range of motion. No edema. SKIN: Warm, dry, no rash. Capillary refill normal. Normal skin turgor. NEURO: No focal deficits. Alert and oriented x3. Gait steady. PSYCH: Normal affect. No signs of depression or anxiety. Course Course Level of Care: Express Care Visit Vital Signs Vital signs: Vital Signs Temperature 97 F L 04/16/25 14:51 Pulse Rate 86 04/16/25 14:51 Respiratory Rate 16 04/16/25 14:51 Blood Pressure 136/84 04/16/25 14:51 Pulse Oximetry 100 04/16/25 14:51 Temperature 97 F L 04/16/25 14:51 Pulse Rate 86 04/16/25 14:51 Respiratory Rate 16 04/16/25 14:51 Blood Pressure 136/84 04/16/25 14:51 Pulse Oximetry 100 04/16/25 14:51 Reviewed MDM MDM Narrative Medical decision making narrative: 75-year-old male patient presents today requesting a refill of his Tessalon Perles. He was initially seen here it at [facility] on 04/04/2025 and diagnosed with cough with postnasal drainage after negative COVID test. Patient states his symptoms have significantly improved but he does continue to have cough that is worse at night. States the Tessalon Perles have helped significantly. States he has cataract surgery tomorrow and wants to make sure he isn't coughing too much afterwards. Denies fever or shortness of breath. Normal physical exam. Patient will give be given a refill of a Tessalon Perles. Recommend PCP follow-up if cough persists. Patient agrees with plan. Vital signs stable. Anticipatory guidance given. Differential Diagnosis Differential Diagnosis: Bronchitis, pneumonia Critical Care Time Critical Care Time Critical Care Time: No Discharge Plan Discharge Clinical Impression: Cough Qualifiers: Cough type: acute Qualified Code(s): R05.1 - Acute cough Patient Disposition: Home Condition: Stable Instructions: Acute Cough (ED) Additional Instructions: Please take the Tessalon Perles as prescribed. As discussed, if your symptoms persist, please follow-up with your PCP in 1 week for further evaluation of your cough. Patient Language: Upper Sorbian Prescriptions: New benzonatate 200 mg capsule 200 mg PO TID PRN (Reason: cough) Qty: 20 0RF No Action fluticasone propionate [Flonase Allergy Relief] 50 mcg/actuation spray,suspension 1 spray intranasal DAILY 30 Days Qty: 16 0RF Rx Instructions: administer into each nostril Zyrtec 10 mg capsule 10 mg PO DAILY 30 Days Qty: 30 0RF clobetasol 0.05 % shampoo 1 applic TOPICAL DAILY Otezla 30 mg tablet 30 mg PO BID Vtama 1 % cream 1 applic topical DAILY metformin 500 mg tablet 500 mg PO BID Qty: 180 1RF Follow-up/Referrals: Heidi Taylor DO [Primary Care Provider, [facility]] Time of Disposition: 15:15
== END 2025-04-16 15:17 | disposition home or self-care (01) ==
PROVIDERS: Emergency Provider Nurse Practitioner; PCP Family Medicine
DX: R05.1 Acute cough (principal); Z87.891 Personal history of nicotine dependence; I48.91 Unspecified atrial fibrillation; E11.9 Type 2 diabetes mellitus without complications; Z79.84 Long term (current) use of oral hypoglycemic drugs; E78.2 Mixed hyperlipidemia
CPT/HCPCS: 99211; 99213; G0463